=== PATIENT | male | born 1970 | race Two or more races ===

== ENCOUNTER 2016-04-06 12:51 | Emergency (ER) | payer SELFPAY ==
[~2016-04-06] VITALS: Ht 162.6 cm; Wt 80.7 kg
[2016-04-06] MEDS ORDERED: AMOXICILLIN 250 MG CAPSULE PO ONE (15:15)
[2016-04-06] MEDS ORDERED: HYDROCODONE/APAP 5/325MG TABLET. PO ONE (15:15)
[2016-04-06] MEDS ORDERED: HYDR-971 PO (15:43)
[2016-04-06] MEDS ORDERED: NAPR500T8 PO (15:43)
[2016-04-06] MEDS ORDERED: AMOX875T PO (15:43)
--- NOTE | 2016-04-06 15:43 | PHYS DOC ---
Past Medical History Past Medical History: No Pertinent History Past Surgical History: Other Additional Past Surgical Histo: left wrist Alcohol Use: Occasionally Drug Use: None Adult General Chief Complaint Chief Complaint: DENTAL PROBLEM HPI HPI Patient is a 46 year old female who presents with right lower gum dental pain that began a week ago. Patient states his had chills and body aches. Denies any trismus. Review of Systems Review of Systems Constitutional: Chills and body aches Eyes: Denies change in visual acuity, redness, or eye pain [] HENT: Right lower gum dental pain Integument: Denies rash or skin lesions [] Neurologic: Denies headache, focal weakness or sensory changes [] Endocrine: Denies polyuria or polydipsia [] Current Medications Current Medications Current Medications Medications (Trade) Dose Ordered Sig/Andi Start Time Stop Time Status Last Admin Dose Admin Acetaminophen/ Hydrocodone Bitart (Lortab 5/325) 1 tab 1X ONCE 04/06/16 15:15 04/06/16 15:16 DC 04/06/16 15:17 1 TAB Amoxicillin (Amoxil) 500 mg 1X ONCE 04/06/16 15:15 04/06/16 15:16 DC 04/06/16 15:17 500 MG Allergies Allergies Allergies Coded Allergies Type Severity Reaction Last Updated Verified No Known Drug Allergies 04/06/16 No Physical Exam Physical Exam Constitutional: Well developed, well nourished, no acute distress, non-toxic appearance. [] HENT: Normocephalic, atraumatic, bilateral external ears normal, oropharynx moist, no oral exudates, nose normal. [] Small amount of swelling noted on the right lower, the gum hurts erythema no fluctuance. Scattered dental caries on the right low teeth. Eyes: PERRLA, EOMI, conjunctiva normal, no discharge. [] Skin: Warm, dry, no erythema, no rash. [] Back: No tenderness, no CVA tenderness. [] Extremities: No tenderness, no cyanosis, no clubbing, ROM intact, no edema. [] Neurologic: Alert and oriented X 3, normal motor function, normal sensory function, no focal deficits noted. [] Psychologic: Affect normal, judgement normal, mood normal. [] Current Patient Data Vital Signs Vital Signs Date Time Temp Pulse Resp B/P Pulse Ox O2 Delivery O2 Flow Rate FiO2 04/06/16 15:17 16 99 Room Air 04/06/16 14:16 99.0 85 99.0 EKG EKG [] Radiology/Procedures Radiology/Procedures [] Course & Med Decision Making Course & Med Decision Making Pertinent Labs and Imaging studies reviewed. (See chart for details) Patient has infected dental caries. Discharged with amoxicillin for 10 days. Follow-up with her dentist in one week. Draganjali Disclaimer Dragon Disclaimer This electronic medical record was generated, in whole or in part, using a voice recognition dictation system. Departure Departure Impression: Primary Impression: Dentalgia Additional Impression: Infected dental caries Disposition: HOME, SELF-CARE Condition: STABLE Referrals: NO PCP (PCP) Follow-up with your dentist in one week Patient Instructions: Dental Caries Additional Instructions: You were seen for infected dental caries. Complete your antibiotics. Follow-up with your dentist as soon as possible. Scripts Naproxen 500 Mg Tablet.dr1 Tab PO BID #60 TAB Ref 2 Prov:KATHI VARGAS APRN 04/06/16 Hydrocodone/Apap 5-325 ([place] 5-325 Tablet)1 Each Tablet1 Tab PO Q6-8HRS PRN PAIN #14 TAB Prov:KATHI VARGAS APRN 04/06/16 Amoxicillin 875 Mg Tablet1 Tab PO BID #20 TAB Prov:KATHI VARGAS APRN 04/06/16 Problem Qualifiers KATHI VARGAS APRN Apr 06, 2016 15:43
[2016-04-06 15:47] VITALS: BP 165/86
== END 2016-04-06 15:47 | disposition home or self-care (01) ==
LOC: ER 12:51
DX: K02.9 Dental caries, unspecified (principal)
CPT/HCPCS: 99283